=== PATIENT | male | born 1935 | race Hispanic/Latino ===

== ENCOUNTER 2017-10-31 14:31 | Outpatient (CLI) | payer MEDICARE | END 2017-10-31 14:32 | disposition home or self-care (01) | LOC: CP 14:31 | PROVIDERS: ATTEND Internal Medicine Critical Care Medicine | DX: J44.9 Chronic obstructive pulmonary disease, unspecified (principal) | CPT/HCPCS: 94060; 94727 ==

== ENCOUNTER 2018-05-10 16:36 | Observation (INO) | payer MEDICARE ==
[2018-05-10 17:04] LABS: #Eosinphils 0.1 thou/uL (0.0-0.7); #Lymphocytes 1.5 thou/uL (1.20-3.40); #Monocytes 0.6 thou/uL (0.11-0.59); %Basophils 0.4 % (0.0-1.0); %Eosinophils 1.4 % (0.0-10.0); %Lymphocytes 20.8 % (21.0-51.0); %Monocytes 8.7 % (0.0-10.0); %Neutrophils 68.7 % (42.0-75.0); Mean Corpuscular Hemoglobin 31.5 pg (27.0-31.0); Mean Corpuscular Volume 98.3 fL (78.0-98.0); Mean Platelet Volume 8.6 fL (7.4-10.4); Platelet Count 210 thou/uL (130-400); RBC Distribution Width 12.3 % (11.5-14.5); Red Blood Cell (RBC) Count 4.15 mill/uL (4.70-6.10); White Blood Cell (WBC) Count 7.2 thou/uL (4.8-10.8)
[2018-05-10 17:32] LABS: ALT (SGPT) 23 U/L (8-55); AST (SGOT) 26 U/L (5-34); Albumin 4.1 g/dL (3.4-4.8); Alkaline Phosphatase 51 U/L (40-150); Anion Gap 13 mmol/L (10-20); BUN (Urea Nitrogen) 21 mg/dL (8.4-25.7); Bilirubin, Total 0.5 mg/dL (0.2-1.2); CK (CPK) 655 U/L (30-200); Calc. Creatinine Clearance 0 mL/min (70-130); Calcium 9.7 mg/dL (7.8-10.44); Carbon Dioxide 27 mmol/L (23-31); Chloride 99 mmol/L (98-107); Estimated GFR-MDRD 59; Globulin 2.8 g/dL (2.4-3.5); Glucose 101 mg/dL (83-110); Lipase 26 U/L (8-78); Potassium 4.4 mmol/L (3.5-5.1); Protein, Total 6.9 g/dL (5.8-8.1); Sodium 135 mmol/L (136-145)
[2018-05-10 17:32] LABS: Troponin I 0.022 ng/mL (< 0.028)
[2018-05-10 17:38] LABS: CKMB 15.8 ng/mL (0-6.6)
[2018-05-10] MEDS ORDERED: hydrOXYzine 25 MG TAB ONE (18:48)
--- NOTE | 2018-05-10 19:58 | RAD ---
PORTABLE AP CHEST X-RAY 05/10/18 HISTORY: Dyspnea, shortness of breath over last few days. COMPARISON: 09/26/11. FINDINGS: Dual lead left subclavian cardiac pacemaking device remains in place and unchanged in position. The c ardiac silhouette is magnified by projection and is at the upper limits of normal in size but stable from prior exam. The pulmonary vasculature is within normal limits. Vascular calcifications are seen in the thoracic aorta. Lungs are clear. There is bilateral glenohumeral osteoarthropathy as well as a cromioclavicular joint osteoarthritis. IMPRESSION: No acute cardiopulmonary process. POS: [facility]
[2018-05-10 22:23] VITALS: BMI 31.1
[2018-05-11] LABS: Troponin I 0.025 ng/mL (< 0.028)
[2018-05-11] MEDS ORDERED: hydrOXYzine 25 MG TAB PO SCH (03:30)
[2018-05-11] MEDS ORDERED: Acetaminophen 325 MG TAB PO PRN (05:21)
[2018-05-11] MEDS ORDERED: Acetaminophen 650 MG Suppository PR PRN (05:21)
--- NOTE | 2018-05-11 05:54 | HP ---
PRIMARY CARE PROVIDER: Maria Luisa Reyna MD CHIEF COMPLAINT: Shortness of breath. HISTORY OF PRESENT ILLNESS: Mr. Porfirio Monk is a pleasant 82-year-old gentleman who was seen at [facility] on 05/11/2018. The patient mainly speaks Macanese. His son was the booking prizer for this encounter. Mr. Porfirio Monk was recently diagnosed with shingles in the V1 distribution. He also has conjunct ival erythema and has been seen by facilities maintenance technician as outpatient. He finishes acyclovir treatment. Over the last 3 days, he has had shortness of breath mainly while trying to sleep. There is no histo ry of any chest pain. There is no cough. No history of fevers or chills. Denies any abdominal pain . REVIEW OF SYSTEMS: All other systems were reviewed and found to be negative. PAST MEDICAL HISTORY: Congestive heart failure, diabetes mellitus, asthma, hypertension, and COPD. PAST SURGICAL HISTORY: Pacemaker placement. SOCIAL HISTORY: The patient is an ex-smoker. No history of alcohol use or recreational drug use. FAMILY HISTORY: No family history of premature coronary artery disease. CODE STATUS: I discussed his code status. He is FULL CODE. ALLERGIES: No known drug allergies. CURRENT MEDICATIONS: Acetaminophen 650 mg 3 times a day, Advair Diskus 100/50 mcg 1 puff b.i.d., alb uterol p.r.n., aspirin 81 mg daily, citalopram 10 mg daily, diltiazem 240 mg daily, Lasix 20 mg daily , DuoNeb p.r.n., lisinopril 40 mg daily, pravastatin 20 mg daily, and spironolactone 25 mg daily. PHYSICAL EXAMINATION: GENERAL: Mr. Porfirio Monk is sleepy, but arousable, not in acute distress. VITAL SIGNS: Blood pressure is 137/65, pulse 66, respiratory rate 20, and oxygen saturation 98% on 3 liters of oxygen by nasal cannula. He is afebrile. EYES: No scleral icterus. Left-sided conjunctival erythema. ENT: Moist mucosal membranes. No oropharyngeal erythema or exudates. NECK: Supple, nontender, trachea is midline. RESPIRATORY: Accessory muscles of breathing are not active. Chest wall movements are symmetric bila terally. LUNGS: Clear to auscultation, without wheeze, rhonchi, or crepitations. CARDIOVASCULAR: S1 and S2 are heard, regular. Peripheral pulses palpable. No carotid bruit, no per icardial rub. ABDOMEN: Soft, distended, nontender, bowel sounds are heard. NEUROLOGIC: No focal motor or sensory deficits, deep tendon reflexes are 2+. MUSCULOSKELETAL: Power is 5/5 in all 4 extremities. SKIN: Erythema over the V1 distribution on the left side. LYMPHATIC: No cervical lymphadenopathy. PSYCHIATRIC: Normal mood, normal affect. Patient is oriented to person and place. LABORATORY AND DIAGNOSTIC DATA: Mr. Porfirio Monk's labs and investigations were reviewed. I revie wed his electrocardiogram, which shows electronic AV paced rhythm. I also reviewed his chest x-ray, which does not show any pulmonary infiltrates. He has a normal white count, macrocytic anemia with h emoglobin 13.0, normal platelet count, decreased sodium of 135, normal potassium, normal creatinine, unremarkable liver profile, and indeterminate troponin I of 0.30, which increased from 0.022 and subs equently trended down into the normal range of 0.025. Creatinine is normal. Creatine kinase is elev ated at 655. ASSESSMENT AND PLAN: Mr. Porfirio Monk is a pleasant 82-year-old gentleman who was seen at [facility] on 05/11/2018. His problem list includes: 1. Shortness of breath: The etiology is unclear at this time. The patient does not appear to be in florid congestive heart failure. He will be admitted to the hospital for further management. We wi ll have his pacemaker interrogated to check his volume status and also to look for any arrhythmias. We will also consult Cardiology Service in case this is an anginal equivalent. 2. Hypertension: We will resume home medications once clarified, we will monitor vital signs and ti trate antihypertensives as needed. 3. Chronic obstructive pulmonary disease: Appears to be stable, no wheeze. 4. Congestive heart failure. This appears to be stable as well. He has a normal BNP. Many thanks for allowing me to participate in your patient's care. Please feel free to contact me wi th any questions or concerns. LEVEL OF RISK: High. LEVEL OF COMPLEXITY: High.
[2018-05-11] MEDS ORDERED: Lisinopril 20 MG TAB PO SCH (09:00)
[2018-05-11] MEDS ORDERED: Furosemide 20 MG TAB PO SCH (09:00)
[2018-05-11] MEDS ORDERED: Spironolactone 25 MG TAB PO SCH (09:00)
[2018-05-11] MEDS ORDERED: Enoxaparin Sodium 40 MG/0.4 ML SYRINGE SC SCH (09:00)
[2018-05-11] MEDS ORDERED: Iopamidol 370 76% 100 ML VIAL ONE (10:28)
[2018-05-11] MEDS ORDERED: Albuterol Sulfate 2.5 mg/3 ml Neb NEB PRN (10:35)
[2018-05-11] MEDS ORDERED: Mometasone/Formoterol 120 PUFF INHALER INH PRN (10:35)
[2018-05-11] MEDS ORDERED: hydrOXYzine 25 MG TAB PO PRN (10:38)
[2018-05-11] MEDS ORDERED: Lidocaine 1% (PF) 30 ML VIAL ONE (12:25)
[2018-05-11] MEDS ORDERED: Fentanyl 100 MCG/2 ML VIAL ONE (13:12)
[2018-05-11] MEDS ORDERED: Midazolam HCl 2 mg/2 ml Vial ONE (13:12)
[2018-05-11] MEDS ORDERED: Acetaminophen/Codeine 30-300mg Tablet PO PRN (13:46)
[2018-05-11] MEDS ORDERED: traMADol HCl 50 MG TAB PO PRN (13:46)
[2018-05-11] MEDS ORDERED: Sodium Chloride 0.9% 200 ML IV PRN (14:00)
[2018-05-11] MEDS ORDERED: Sodium Chloride 0.9% 1,000 ML IV SCH (14:00)
--- NOTE | 2018-05-11 14:26 | CON ---
DATE OF CONSULTATION: 05/21/2018 CARDIOLOGY CONSULTATION REASON FOR CONSULTATION: Shortness of breath. HISTORY OF PRESENT ILLNESS: Mr. Monroy is a pleasant 82-year-old white gentleman who comes to the [facility] for shortness of breath. He was at home. He has a history of COPD, but he has been noticing i ncreased shortness of breath with exertion lately, so he decided to come in. His BNP was normal. Hi s troponins were just slightly elevated to the indeterminate range and came back down, but an elevate d CK-MB. Cardiology is being consulted for all of this. He feels better now. PAST MEDICAL HISTORY: Includes, 1. Type 2 diabetes. 2. Bronchial asthma. 3. Hypertension. 4. Chronic obstructive pulmonary disease. PAST SURGICAL HISTORY: Pacemaker placement in the past. SOCIAL HISTORY: Former smoker. No tobacco or drugs. FAMILY HISTORY: Noncontributory. REVIEW OF SYSTEMS: A 12-point review of systems is done and is all negative except as stated in the history of present illness. OUTPATIENT MEDICATIONS: Include, 1. Acetaminophen. 2. Advair Diskus. 3. Albuterol. 4. Aspirin 81 a day. 5. Citalopram. 6. Diltiazem 240 mg a day. 7. Lasix 20 mg a day. 8. DuoNeb. 9. Lisinopril 40 mg a day. 10. Pravastatin 20 mg a day. 11. Spironolactone 25 a day. ALLERGIES: No known drug allergies. PHYSICAL EXAMINATION: VITAL SIGNS: Temperature 98.4, pulse 72, respiration rate 16, satting 98% on 2 liters, blood pressur e 142/68. GENERAL: Awake, alert, oriented x3, in no distress. HEENT: Normocephalic, atraumatic. NECK: Supple. LUNGS: Have reduced breath sounds bilaterally. CARDIOVASCULAR: S1, S2. No S3, S4. No murmurs. ABDOMEN: Soft. Positive bowel sounds. EXTREMITIES: No edema. SKIN: Warm and dry. LABORATORY WORK: Reviewed. CBC is unremarkable except for a hemoglobin of 13, hematocrit of 40, nor mal platelet count. CMP is unremarkable. CK-MB was 15. Troponin went from 0.02 to 0.03 and then 0. 02 and a CK was 655. BNP was 32. Albumin was 4.1. IMAGING: Chest x-ray, no acute cardiopulmonary process. ASSESSMENT AND PLAN: Shortness of breath: Certainly this could be ischemic in nature with his histo ry of tobacco use and diabetes. He is a high risk, but he had the negative stress test earlier this year, so the next best step would be to do a heart catheterization for further risk stratification. We will plan on doing this later today. We spoke about the risks and benefits of the procedures, whi ch included, but not limited to stroke, myocardial infarction, , bleeding, need for blood transf usion, limb loss, organ loss. He understands and verbalized understanding of this and agrees to proc eed. He is high risk for bleeding given his difficulty hearing and following instructions. He is aw are of this. He will try to follow instructions. Further recommendation per results of coronary angiogram.
[2018-05-11 16:05] VITALS: BP 140/65; TEMP 97.4
--- NOTE | 2018-05-12 02:39 | DIS ---
DATE OF ADMISSION: 05/10/2018 DATE OF DISCHARGE: 05/11/2018 PRIMARY CARE PHYSICIAN: Dr. Reyna. CONSULTANTS: Dr. Ramirez. PROCEDURES: Patient had a cardiac catheter today. No stents were placed. Patient had a chest x-ray on 05/10/2018 that showed no acute cardiopulmonary process. DISCHARGE DIAGNOSES: Include, 1. Shortness of breath, probably related to his reluctance to wear his oxygen device, because of his recent shingles outbreak on his face. 2. Hypertension. 3. Chronic obstructive pulmonary disease. 4. Diabetes. 5. Congestive heart failure. 6. Shingles, resolving. REVIEW OF SYSTEMS: Reports that he does have some mild shortness of breath here , but much better,. All other review of systems was reviewed and found to be negative. PHYSICAL EXAMINATION: VITAL SIGNS: Temperature 97.9, pulse 66, respirations are 20, blood pressure 137/65, pulse ox is 97% on 2 liters. GENERAL: Mr. Porfirio Monk is alert, answers questions appropriately. Eyes does have some left-sided conjunctival erythema. Pupils are reactive to light. ENT: Moist mucosal membranes. Head is normocephalic. NECK: Supple, nontender. Trachea is midline. RESPIRATORY: Chest wall movements are symmetrical bilaterally. Breath sounds with scattered diffuse rhonchi. No respiratory distress is noted. CARDIOVASCULAR: S1, S2, regular rhythm. Peripheral pulses are palpable. ABDOMEN: Soft, nontender, nondistended. Bowel sounds are heard. NEUROLOGIC: No focal or sensory deficits. MUSCULOSKELETAL: Power is 5/5 in all 4 extremities. SKIN: Erythema over the V1 distribution on the left side. LYMPHATIC: No cervical lymphadenopathy. PSYCH: Has normal affect. He is oriented to person and place. HOSPITAL COURSE: Mr. Porfirio Monk is a pleasant 82-year-old gentleman who was seen in the emergency room on 05/10/2018. He was recently diagnosed with shingles in the V1 distribution. He had just finished acyclovir treatment, was seen by real estate attorney as an outpatient for the conjunctival erythema. He reports over the last 3 days that he has had some shortness of breath mainly while trying to sleep. Today, patient thinks that he was primarily short of breath because he refused to wear his oxygen device, because of the shingle distribution on the left side of his face. He denied any cough. He denied any fevers or chills. Denied any abdominal pain or other symptoms. While he was in the hospital, we did serial troponins, the first one was negative. The second one bumped slightly at 0.030 and the third one went back down to negative. His CK-MB was 6.55. Patient did not appear to have any congestive heart failure exacerbation. He does have a history of COPD. He was admitted to the observation unit. The pacemaker interrogated and a Cardiology consult was placed. Dr. Ramirez visited with patient today and because of his slight bump in troponin and dyspnea decided best course of action was a cardiac catheterization, which was done earlier this afternoon and no stents were placed. Patient was observed for 3-1/2 hours post-procedure, bleeding was controlled at catheter insertion site and he denied any complaints. Decision was made to send patient home, which Dr. Ramirez agreed with as long as there was no complications and bleeding at the site of insertion for the cardiac catheterization. HOME MEDICATIONS: Home medications will be continued, which include albuterol inhalation solution 3 mL by nebulizer q.6 hours as needed for shortness of breath, Celexa 10 mg p.o. daily, Advair 12 grams 2 puffs b.i.d., furosemide 20 mg p.o. daily, lisinopril 40 mg p.o. daily, pravastatin 20 mg p.o. daily, Aldactone 25 mg p.o. daily, and Atarax, which was new today 25 mg p.o., is q.4 hours p.r.n. as he needs for itching while he is recovering from shingles. ALLERGIES: No known drug allergies. DISCHARGE INSTRUCTIONS: Patient will be stable. We will be discharged to home. REFERRAL: Patient should make an appointment to see Dr. Reyna within the next week. Follow up with Dr. Ramirez in the next 3-4 weeks. [facility]IT[facility]
[2018-05-12] MEDS ORDERED: Pravastatin Sodium 20 MG TAB PO SCH (09:00)
[2018-05-12] MEDS ORDERED: Citalopram 10 MG TAB PO SCH (09:00)
--- NOTE | 2018-05-18 15:45 | EKG ---
Test Reason : Blood Pressure : / mmHG Vent. Rate : 068 BPM Atrial Rate : 056 BPM P-R Int : 000 ms QRS Dur : 172 ms QT Int : 444 ms P-R-T Axes : 000 028 084 degrees QTc Int : 472 ms AV dual-paced rhythm Abnormal ECG Confirmed by ROSEANNE ISSA DO ([id number]), video tape editor LILLY MAGANA ([id number]) on 05/18/2018 3:45:01 PM Referred By: Confirmed By:ROSEANNE ISSA DO
== END 2018-05-11 19:25 | disposition home or self-care (01) ==
LOC: ERS 16:36 → 2SW 18:56
PROVIDERS: ADMIT Internal Medicine; ATTEND Internal Medicine
PROC: 4A023N7 Measurement of Cardiac Sampling and Pressure, Left Heart, Percutaneous Approach (ICD-10-PCS; principal; 2018-05-11)
PROC: B2111ZZ Fluoroscopy of Multiple Coronary Arteries using Low Osmolar Contrast (ICD-10-PCS; 2018-05-11)
DX: R06.02 Shortness of breath (principal); I77.1 Stricture of artery; E11.9 Type 2 diabetes mellitus without complications; I11.0 Hypertensive heart disease with heart failure; I50.9 Heart failure, unspecified; J44.9 Chronic obstructive pulmonary disease, unspecified; Z87.891 Personal history of nicotine dependence; Z79.82 Long term (current) use of aspirin; Z79.899 Other long term (current) drug therapy; Z95.0 Presence of cardiac pacemaker
CPT/HCPCS: 71045; 80053; 82550; 82553; 83690; 83880; 84484 ×2; 85025; 93005; 93458; 99285; C1769; G0378 ×2; 36415; 99152; J1644; J2001; J2250; J3010

== ENCOUNTER 2019-06-27 16:54 | Inpatient (IN) | payer MEDICARE ==
--- NOTE | 2019-06-27 17:28 | RAD ---
EXAM: CHEST ONE VIEW HISTORY: Cough COMPARISON: 05/10/2018 FINDINGS: Dual lead left subclavian cardiac pacemaking device remains in place. The cardiac silhouette is magni fied by projection but is enlarged. The pulmonary vasculature is within normal limits. There is suboptimal evaluation of the left lung base, but there is suggestion of mild linear patchy densities left lung base which could be related to atelectasis. Developing pneumonia left lung base is a possibility. Linear density is seen in the right midlung zone which may represent minimal atelectasis or scarring. Vascular calcifications are seen in the thoracic aorta. There is prominent bilateral glenohumeral osteoarthropathy with high riding humeral heads suggesting chronic rotator cuff tears. T here is bilateral acromioclavicular joint osteoarthritis. IMPRESSION: 1. Suboptimal evaluation of left lung base with suggestion of minimal linear and patchy densities pre sent. Findings may be related to atelectasis, but developing pneumonia is a possibility. Follow-up PA and lateral chest x-ray is recommended. 2. Cardiomegaly.
[2019-06-27 17:33] LABS: #Lymphocytes 0.9 thou/uL (1.20-3.40); #Monocytes 0.6 thou/uL (0.11-0.59); #Neutrophils 7.2 thou/uL (1.40-6.50); %Basophils 0.1 % (0.0-1.0); %Eosinophils 0.5 % (0.0-10.0); %Lymphocytes 10.2 % (21.0-51.0); %Monocytes 7.3 % (0.0-10.0); %Neutrophils 81.9 % (42.0-75.0); Hemoglobin 12.3 g/dL (14.0-18.0); Mean Corpuscular HGB CONC 31.9 g/dL (32.0-36.0); Mean Corpuscular Hemoglobin 31.3 pg (27.0-31.0); Mean Platelet Volume 9.7 fL (7.4-10.4); Platelet Count 163 thou/uL (130-400); Red Blood Cell (RBC) Count 3.92 mill/uL (4.70-6.10); White Blood Cell (WBC) Count 8.8 thou/uL (4.8-10.8)
[2019-06-27] MEDS ORDERED: Albuterol Sulfate 2.5 mg/3 ml Neb ONE (17:56)
[2019-06-27 17:58] LABS: ALT (SGPT) 46 U/L (8-55); AST (SGOT) 33 U/L (5-34); Albumin 3.9 g/dL (3.4-4.8); Alkaline Phosphatase 61 U/L (40-110); Anion Gap 12 mmol/L (10-20); BUN (Urea Nitrogen) 20 mg/dL (8.4-25.7); Bilirubin, Total 0.6 mg/dL (0.2-1.2); CK (CPK) 200 U/L (30-200); Calc. Creatinine Clearance 0 mL/min (70-130); Calcium 8.8 mg/dL (7.8-10.44); Carbon Dioxide 34 mmol/L (23-31); Chloride 97 mmol/L (98-107); Estimated GFR-MDRD 73; Globulin 2.4 g/dL (2.4-3.5); Glucose 117 mg/dL (83-110); Potassium 4.3 mmol/L (3.5-5.1); Protein, Total 6.3 g/dL (5.8-8.1); Sodium 139 mmol/L (136-145)
[2019-06-27 18:16] LABS: CKMB 5.9 ng/mL (0-6.6)
--- NOTE | 2019-06-27 18:45 | RAD ---
EXAM: Two views chest PROVIDED CLINICAL HISTORY: Shortness of breath. COMPARISON: 06/27/2019 at 1659 hours. FINDINGS: [Pacemaking device remains in place. Cardiac silhouette is enlarged. Pulmonary vasculature is at the upper limits of normal. There are bibasilar pleural parenchymal lung changes greater on the left with greater patchy parenchymal densities in the left lower lobe. Findings are suggestive of small bi lateral pleural effusions with pneumonia at the left lung base. There is no other interval change from prior study. IMPRESSION: 1. Left lower lobe pneumonia. Follow-up to complete resolution is recommended. 2. Small bilateral pleural effusions greater on the left. 3. Vascular calcifications and cardiomegaly..
[2019-06-27 22:10] VITALS: BMI 34.9
[2019-06-28] MEDS ORDERED: Acetaminophen 325 MG TAB PO PRN (12:07)
[2019-06-28] MEDS ORDERED: Guaifenesin DM 100-10/5 ML UDCUP PO PRN (12:07)
[2019-06-28] MEDS ORDERED: Bisacodyl 10 MG SUPP PR PRN (12:07)
[2019-06-28] MEDS ORDERED: Ondansetron PF 4 MG/2 ML Vial IVP PRN (12:07)
[2019-06-28] MEDS ORDERED: Senokot S 8.6-50 MG TAB PO PRN (12:07)
--- NOTE | 2019-06-28 13:36 | HP ---
REASON FOR ADMISSION: COPD exacerbation, CHF exacerbation. 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 He apparently started to have shortness of breath from last 4 days. He uses oxygen at home at 2 L. SOB got worse initially with exertion and later at rest. He has no fever at home. No expectoration of sputum. The patient also developed some lower extremity edema, which has gotten better after getting Lasix in the ER. No complaints of chest pain, palpitation, or PND. PAST MEDICAL AND SURGICAL HISTORY: History of CHF with diastolic dysfunction, diabetes mellitus type 2, COPD, hypertension, pacemaker, dyslipidemia, and depression. CURRENT MEDICATIONS: The patient is on: 1. Aspirin 81 mg p.o. daily. 2. Spironolactone 25 mg p.o. daily. 3. Cardizem CD 240 mg p.o. daily. 4. Celexa 10 mg p.o. daily. 5. Lisinopril 40 mg p.o. daily. 6. Pravachol 20 mg p.o. daily. 7. Advair Diskus inhaler. ALLERGIES: LASIX. PERSONAL HISTORY: Quit smoking 7 years back prior to which has smoked 1 pack a day for nearly 20 to 30 years. Drinks a mixed drink off and on and does not abuse drugs. Lives with his . FAMILY HISTORY: No history of premature heart disease in the family. CODE STATUS: Full. Power of business attorney is his , Ms. Adler. REVIEW OF SYSTEMS: CONSTITUTIONAL: Negative for weight loss or gain, ability to conduct usual activities. SKIN: Negative for rash, itching. EYES: Negative for double vision, pain. ENT/MOUTH: Negative for nose bleeding, neck stiffness, pain, tenderness. CARDIOVASCULAR: Negative for palpitations, dyspnea on exertion, orthopnea. RESPIRATORY: Negative for shortness of breath, wheezing, cough, hemoptysis, fever or night sweats. GASTROINTESTINAL: Negative for poor appetite, abdominal pain, heartburn, nausea , vomiting, constipation, or diarrhea. GENITOURINARY: Negative for urgency, frequency, dysuria, nocturia. MUSCULOSKELETAL: Negative for pain, swelling. NEUROLOGIC/PSYCHIATRIC: Negative for anxiety, depression. ALLERGY/IMMUNOLOGIC: Negative for skin rash, bleeding tendency. PHYSICAL EXAMINATION: GENERAL: The patient is an 84-year-old male, who is currently not in any acute distress. VITAL SIGNS: Blood pressure 132/58, pulse 66 per minute, respiratory rate 24 per minute, saturating 91% on 4 L oxygen, and temperature 98.8 degrees Fahrenheit. NECK: Supple. No elevated JVD. HEENT: Eyes; extraocular muscles intact. Pupils reacting to light. Oral cavity, mucous membranes are moist. No exudates or congestion. CARDIOVASCULAR: S1 and S2 heard. Regular rhythm. RESPIRATORY: Air entry 1+ bilateral. Scattered wheezes plus bilateral. ABDOMEN: Soft. Bowel sounds heard. No tenderness, rigidity, or guarding. EXTREMITIES: Mild peripheral edema. No calf tenderness. VASCULAR: Peripheral pulses 1+ bilateral. No ischemic ulcerations or gangrene. CENTRAL NERVOUS SYSTEM: No gross focal deficits noted. The patient is awake and alert. PSYCHIATRIC: No obvious hallucinations or delusions. LABORATORY DATA: Chest x-ray done shows questionable left lower lobe opacity likely atelectasis. White count of 8.8, hemoglobin and hematocrit of 12 and 38, platelet count 163, with 81% neutrophils. Serum bicarb 34, BUN 20, creatinine 0.9, serum glucose 117. Troponin I 0.03. CK-MB 5.9. BNP 565. Albumin 3.9. Blood cultures x2, no growth. EKG done shows paced rhythm at 65 beats per minute. QRS duration is 138 milliseconds, corrected QT is 434 milliseconds. There is T-inversion in V5 and V6. CLINICAL IMPRESSION AND PLAN: The patient will be admitted to medical floor for acute on chronic obstructive pulmonary disease exacerbation, acute on chronic respiratory failure with hypoxia, acute congestive heart failure exacerbation with diastolic dysfunction. The patient will be on Solu-Medrol 40 mg IV q.8 hourly, DuoNeb q.6 hourly, Brovana nebulization twice daily, and empiric Augmentin. We will continue aspirin, Celexa, Cardizem CD, lisinopril, spironolactone, and hydrochlorothiazide twice daily. Please note, the patient is allergic to Lasix. We will obtain echo with 2D Doppler for LV function. The patient has had prior cardiac catheterization done in May 2018, which was essentially normal. He has had a prior PFTs done in October 2017, which showed obstructive defect. We will continue to closely monitor him on medical floor. Job ID: [id number] [facility]
[2019-06-28] MEDS: methylPREDNISolone Sod Succ 40 MG VIAL IVP SCH ×2 (14:37→21:40)
--- NOTE | 2019-06-28 15:18 | CON ---
DATE OF CONSULTATION: 06/28/2019 This is 70 minutes time, of that time, greater than 50% was spent on direct patient care. HISTORY OF PRESENT ILLNESS: Mr. Porfirio Monk is an 84-year-old, who presents with a four-day history of increasing shortness of breath, particularly with exertion. His son tells me that the patient is on oxygen at home, but that has not helped him with his breathing. He has had no fever, chills, cough, or wheezing. PAST MEDICAL HISTORY: 1. COPD. 2. Chronic diastolic heart dysfunction. 3. Diabetes mellitus, type 2. 4. Hyperlipidemia. PAST SURGICAL HISTORY: Pacemaker placement. MEDICATIONS: Prior to admission; 1. Aspirin. 2. Spironolactone. 3. Cardizem. 4. Celexa. 5. Lisinopril. 6. Pravachol. 7. Advair Diskus inhaler. ALLERGIES: LASIX. SOCIAL HISTORY: He quit smoking 7 years ago after smoking one pack a day for 30 years. Does not consume alcohol very often. Lives at home with his . FAMILY HISTORY: Unremarkable. REVIEW OF SYSTEMS: A 12-point review of systems otherwise negative. PHYSICAL EXAMINATION: VITAL SIGNS: Temperature 97.6, pulse 65, respirations 20, O2 saturation 91% on 2 L, and blood pressure 167/72. GENERAL: He is lying flat and in no distress. HEENT: Unremarkable. NECK: No adenopathy or JVD. LUNGS: He has few inspiratory crackles in both bases. No wheezing. No accessory muscle use. CARDIAC: S1 and S2, regular. ABDOMEN: Soft. EXTREMITIES: No edema. LABORATORY DATA: BNP is 565. Sodium 139, potassium 4.3, BUN 20, creatinine 0.9, glucose 117. White blood cell count 8.8, hematocrit 38.5, and platelet count 163. His chest x-ray shows pulmonary vascular congestion and cardiomegaly along with small bilateral pleural effusions. ASSESSMENT: 1. Congestive heart failure - acute diastolic. 2. I doubt the patient has pneumonia. 3. Severe chronic obstructive pulmonary disease. PLAN: I would focus on diuresing this patient with IV Lasix. His labs will be recheck tomorrow. I will go ahead and hold his hydrochlorothiazide for the time being. Job ID: [id number]
[2019-06-28] MEDS: Arformoterol 15 MCG/2 ML NEB NEB SCH (19:59)
[2019-06-28] MEDS: Amoxicillin/Potassium Clav 875 MG TAB PO SCH (20:03)
[2019-06-28] MEDS: Famotidine 20 MG TAB PO SCH (20:03)
[2019-06-28] MEDS: Simvastatin 5 MG TAB PO SCH (20:03)
[2019-06-28] MEDS: Mometasone/Formoterol 120 PUFF INHALER INH SCH (20:15)
[2019-06-28] MEDS: acetaZOLAMIDE Sodium 250 MG in Sodium Chloride 0.9% 50 ML IVPB SCH (20:57)
[2019-06-28] MEDS ORDERED: Hydrochlorothiazide 25 MG TAB PO SCH (21:00)
[2019-06-29] MEDS ORDERED: hydrALAZINE 20 MG/ML VIAL SLOW IVP PRN (00:23)
[2019-06-29 05:38] LABS: #Lymphocytes 0.4 thou/uL (1.20-3.40); #Monocytes 0.1 thou/uL (0.11-0.59); #Neutrophils 6.9 thou/uL (1.40-6.50); %Eosinophils 0.1 % (0.0-10.0); %Lymphocytes 5.6 % (21.0-51.0); %Monocytes 1.4 % (0.0-10.0); %Neutrophils 92.9 % (42.0-75.0); Hemoglobin 12.5 g/dL (14.0-18.0); Mean Corpuscular HGB CONC 31.6 g/dL (32.0-36.0); Mean Corpuscular Hemoglobin 31.4 pg (27.0-31.0); Mean Corpuscular Volume 99.3 fL (78.0-98.0); Mean Platelet Volume 9.6 fL (7.4-10.4); Platelet Count 166 thou/uL (130-400); RBC Distribution Width 12.2 % (11.5-14.5); Red Blood Cell (RBC) Count 3.97 mill/uL (4.70-6.10); White Blood Cell (WBC) Count 7.4 thou/uL (4.8-10.8)
[2019-06-29] MEDS: methylPREDNISolone Sod Succ 40 MG VIAL IVP SCH ×3 (05:48→21:07)
[2019-06-29 05:59] LABS: Anion Gap 13 mmol/L (10-20); BUN (Urea Nitrogen) 19 mg/dL (8.4-25.7); Calc. Creatinine Clearance 67 mL/min (70-130); Carbon Dioxide 30 mmol/L (23-31); Chloride 100 mmol/L (98-107); Estimated GFR-MDRD 73; Glucose 157 mg/dL (83-110); Potassium 4.3 mmol/L (3.5-5.1); Sodium 139 mmol/L (136-145)
[2019-06-29] MEDS: Arformoterol 15 MCG/2 ML NEB NEB SCH ×2 (08:03→20:08)
[2019-06-29] MEDS: Mometasone/Formoterol 120 PUFF INHALER INH SCH ×2 (08:04→20:08)
[2019-06-29] MEDS: Lisinopril 20 MG TAB PO SCH (08:52)
[2019-06-29] MEDS: Citalopram 10 MG TAB PO SCH (08:52)
[2019-06-29] MEDS: Enoxaparin Sodium 40 MG/0.4 ML SYRINGE SC SCH (08:52)
[2019-06-29] MEDS: acetaZOLAMIDE Sodium 250 MG in Sodium Chloride 0.9% 50 ML IVPB SCH ×2 (08:52→21:07)
[2019-06-29] MEDS: Amoxicillin/Potassium Clav 875 MG TAB PO SCH ×2 (08:53→21:07)
[2019-06-29] MEDS: Famotidine 20 MG TAB PO SCH ×2 (08:53→21:07)
[2019-06-29] MEDS: Aspirin Chewable 81 MG TAB PO SCH (08:53)
[2019-06-29] MEDS: Spironolactone 25 MG TAB PO SCH (08:53)
[2019-06-29] MEDS ORDERED: Diltiazem HCl SR 60 mg Capsule PO SCH (09:00)
--- NOTE | 2019-06-29 11:37 | PRG ---
DATE OF SERVICE: 06/29/2019 SUBJECTIVE: The patient seem to be doing reasonably well. He is coughing. OBJECTIVE: VITAL SIGNS: On exam, temperature 98.1, pulse 95, respirations 18, O2 saturation 91% on 2 L, and blood pressure 165/69. HEENT: Clear. NECK: No adenopathy or JVD. LUNGS: Coarse breath sounds bilaterally. CARDIAC: S1 and S2. Regular. ABDOMEN: Soft. EXTREMITIES: No edema. LABORATORY DATA: White blood cell count 7.9, hematocrit 39.4, and platelet count 166. Sodium 139, potassium 4.3, chloride 100, CO2 of 30, BUN 19, creatinine 0.9, and glucose 157. ASSESSMENT: 1. Acute diastolic congestive heart failure. 2. Acute hypoxic respiratory failure. 3. History of severe chronic obstructive pulmonary disease. RECOMMENDATIONS: He is currently being diuresed with acetazolamide because he is allergic to Lasix that is probably not a good long-term solution. He is also on spironolactone. Job ID: [id number]
--- NOTE | 2019-06-29 14:15 | PRG ---
DATE OF SERVICE: 06/29/2019 SUBJECTIVE: The patient reports he is actually breathing quite well. Feels like he is pretty close to his baseline, not having significant cough, reviewed with him the allergy to furosemide. Apparently, he had been taking it previously and had no problems, suddenly developed some swelling of his face and felt like his tongue was swelling. He believes it was related to that medication, although there was apparently no way to confirm that. OBJECTIVE: VITAL SIGNS: Temperature is 98.1, pulse 65, respirations 20, O2 saturation 92% on 2 L nasal cannula, BP 165/69. GENERAL APPEARANCE: Age-appropriate male, in no distress. Awake, alert, pleasant, cooperative. HEART: Regular rate and rhythm without murmurs, gallops, rubs. LUNGS: Diminished but clear. No wheeze or rales. ABDOMEN: Soft, nontender, and nondistended. EXTREMITIES: No cyanosis, clubbing, or edema. LABORATORY DATA: White count 7.4, hemoglobin 12.5, platelets 166. Chemistries normal. Glucose 180. Echocardiogram from yesterday revealed EF of 50%-55% EF, [id number] TR, mildly elevated pulmonary artery pressure, left atrium was severely dilated. IMPRESSION AND PLAN: 1. Chronic obstructive pulmonary disease exacerbation. The patient with chronic COPD and chronic hypoxic respiratory failure requiring home oxygen. The patient is improving with treatment including steroids, nebulizers, and supplemental oxygen. He is close to his baseline and hope to potentially discharge as early as tomorrow. 2. Congestive heart failure. This is primarily based on an elevated BNP. He does not have significant history of cardiomyopathy and has had normal EF now in the echo and last year on heart catheterization, which also revealed no coronary disease. It is challenging to diurese with Lasix allergy. He is getting acetazolamide and Aldactone presently and seems to be stable from that perspective, but I doubt he will need to go home on any additional diuretics. 3. Lasix allergy. It is concerning that the patient had swelling of his lips and tongue and yet he is still on an EARNSET inhibitor. 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 Suspect the only way at this point to confirm that is, if it were to happen again. 4. Hypertension. For now, continue with the lisinopril and diltiazem. 5. Pneumonia. Chest x-ray is concerning for infiltrate. He is on p.o. Augmentin and appears to be doing well with that. Job ID: [id number]
[2019-06-29] MEDS: Simvastatin 5 MG TAB PO SCH (21:08)
[2019-06-30] MEDS: methylPREDNISolone Sod Succ 40 MG VIAL IVP SCH ×2 (05:11→14:05)
[2019-06-30] MEDS: Arformoterol 15 MCG/2 ML NEB NEB SCH (07:58)
[2019-06-30] MEDS: Mometasone/Formoterol 120 PUFF INHALER INH SCH (07:59)
[2019-06-30] MEDS: acetaZOLAMIDE Sodium 250 MG in Sodium Chloride 0.9% 50 ML IVPB SCH (08:37)
[2019-06-30] MEDS: Aspirin Chewable 81 MG TAB PO SCH (08:37)
[2019-06-30] MEDS: Citalopram 10 MG TAB PO SCH (08:37)
[2019-06-30] MEDS: Amoxicillin/Potassium Clav 875 MG TAB PO SCH (08:37)
[2019-06-30] MEDS: Enoxaparin Sodium 40 MG/0.4 ML SYRINGE SC SCH (08:38)
[2019-06-30] MEDS: Lisinopril 20 MG TAB PO SCH (08:38)
[2019-06-30] MEDS: Famotidine 20 MG TAB PO SCH (08:38)
[2019-06-30] MEDS: Spironolactone 25 MG TAB PO SCH (08:38)
--- NOTE | 2019-06-30 09:53 | PRG ---
DATE OF SERVICE: 06/30/2019 SUBJECTIVE: The patient was feeling very good. However, this morning, he got up, went to the bathroom and said he was not feeling quite as well. Subsequent to that, he feels like his breathing is generally better. OBJECTIVE: VITAL SIGNS: Temperature 97.8, pulse 65, respirations 18 to 20, O2 saturation 95% to 96% on 2 L, and BP was documented at 138/39, I suspect that was an error, previous was 149/79. GENERAL APPEARANCE: Age-appropriate male. He is in no distress. He is awake and alert. LUNGS: Actually clear, but diminished with no wheezing or rales noted. LABORATORY DATA: Glucose is 182. IMPRESSION AND PLAN: 1. Acute on chronic hypoxic respiratory failure secondary to chronic obstructive pulmonary disease, pneumonia. 2. Pneumonia with left lower lobe infiltrate noted on chest x-ray. Continue with p.o. Augmentin. 3. Chronic obstructive pulmonary disease with exacerbation, likely related to the pneumonia. Continuing with the DuoNebs, Brovana, Solu-Medrol, and Dulera. 4. Hypertension, well controlled. Continue with diltiazem and Zestril. 5. Concern for congestive heart failure based on elevated BNP at 565. However, echocardiogram showing essentially normal ventricular function. Currently on Aldactone at home on a regular basis. He is receiving some acetazolamide here in addition to that because of a Lasix allergy, which is unclear. Suspect this is more related to the pneumonia and chronic obstructive pulmonary disease and we will not need to continue the acetazolamide going forward. DISPOSITION: I believe the patient is likely close to going home. We will see how he does today. If he is feeling up to it and Pulmonology agrees, could potentially go home later today. Job ID: [id number]
--- NOTE | 2019-06-30 13:11 | PRG ---
DATE OF SERVICE: 06/30/2019 SUBJECTIVE: The patient is doing better. He wants to go home. OBJECTIVE: VITAL SIGNS: Temperature 97.9, pulse 65, blood pressure 130/59, O2 saturation 95% on 2 L. HEENT: Unremarkable. NECK: No adenopathy or JVD. LUNGS: He has some crackles in the right base. Left side is clear. ABDOMEN: Soft and nontender. CARDIAC: S1 and S2 regular. DIAGNOSTIC DATA: Echocardiogram showed mitral regurgitation. ASSESSMENT: 1. Decompensated diastolic heart failure. 2. History of severe chronic obstructive pulmonary disease. 3. Acute hypoxic respiratory failure. PLAN: The patient has oxygen at home. He will continue diuretics at home. I will stop the acetazolamide and he will continue the spironolactone at home. Job ID: [id number]
[2019-06-30 14:41] VITALS: BP 155/64; TEMP 98
--- NOTE | 2019-07-01 10:39 | DIS ---
DATE OF ADMISSION: 06/27/2019 DATE OF DISCHARGE: 06/30/2019 DISCHARGE DIAGNOSES: 1. Acute on chronic hypoxic respiratory failure. 2. Pneumonia of left lower lobe based on infiltrate on x-ray. 3. Congestive heart failure, likely diastolic in nature. 4. Chronic obstructive pulmonary disease with exacerbation. 5. History of hypertension. HISTORY OF PRESENT ILLNESS: This patient is an 84-year-old male with history of longstanding COPD with chronic hypoxic respiratory failure requiring home oxygen, who presented to the hospital with worsening shortness of breath. He had an elevated BNP concerning for decompensation of heart failure. He had a chest x-ray showing left lower lobe infiltrate consistent with pneumonia and he had small bilateral effusions. HOSPITAL COURSE: The patient was admitted to the hospital, started on antibiotics. He also had a history of allergy to Lasix, which was somewhat unclear. However, the patient reported in the past he had some swelling of his lips and tongue, although he had previously taken Lasix without any difficulty. He personally attributed to the Lasix, although that is unconfirmed. He is on Aldactone as a diuretic at home, so he was started on acetazolamide in the hospital. He did have an echocardiogram which revealed an EF of 50% to 55%. He had mild MR, [id number]-[id number] TR, and mildly elevated pulmonary artery pressure, but otherwise normal functioning cardiac status. He was also treated aggressively for COPD with steroids, oxygen, and nebulizer treatments. He was seen in consultation by Pulmonology. Ultimately, the patient's symptoms did improve with these treatments and he has felt like he was breathing back to his baseline with his 2 L of nasal cannula oxygen and with that was felt to be stable for discharge. PHYSICAL EXAMINATION: On the day of discharge, please see the progress note dated same date as discharge. DISPOSITION: The patient is discharged to home. ACTIVITY: As tolerated. DIET: He will stay on a heart healthy diet. DISCHARGE MEDICATIONS: He will be on; 1. Augmentin 875 one p.o. b.i.d. 2. Prednisone 20 mg p.o. daily for 4 days. He will continue his usual home medications including; 1. Aldactone 25 mg daily. 2. Citalopram 10 mg daily. 3. Pravastatin 20 mg daily. 4. Lisinopril 20 mg daily. 5. Advair HFA two puffs b.i.d. 6. Diltiazem 240 mg daily. 7. DuoNeb p.r.n. FOLLOWUP: He will follow up with his PCP, Dr. Maria Luisa Reyna and will follow up with Dr. Duncan Bullock as an outpatient. He is also encouraged to follow up with Dr. Ramirez, his adapted physical education specialist on July 24. He can return to the hospital at anytime should he have any do so. TIME SPENT: Total time in discharge activities was 38 minutes. Job ID: [id number]
== END 2019-06-30 15:03 | disposition home or self-care (01) | DRG 291 ==
LOC: ERS 16:54 → OBSVTOIN 21:54 → 2SW 21:54 → T4-B 06-29 10:19
PROVIDERS: ADMIT Emergency Medicine; ATTEND Emergency Medicine
DX: I11.0 Hypertensive heart disease with heart failure (principal); I50.31 Acute diastolic (congestive) heart failure; J96.21 Acute and chronic respiratory failure with hypoxia; J18.9 Pneumonia, unspecified organism; J44.1 Chronic obstructive pulmonary disease with (acute) exacerbation; E11.9 Type 2 diabetes mellitus without complications; E78.5 Hyperlipidemia, unspecified; F32.9 Major depressive disorder, single episode, unspecified; Z79.82 Long term (current) use of aspirin; Z79.899 Other long term (current) drug therapy; Z88.8 Allergy status to other drugs, medicaments and biological substances; Z87.891 Personal history of nicotine dependence; Z99.81 Dependence on supplemental oxygen
CPT/HCPCS: 36415; 36416; 71045; 71046; 80048; 80053; 82550; 82553; 83880; 84443; 84484; 85025; 87040; 87070; 87205; 93005; 93306; 94640; 94664; 94760; 96365; J1120; J1650; J1956; J2920; J7611; J7620

== ENCOUNTER 2021-09-04 19:36 | Emergency (ER) | payer MEDICARE ==
[2021-09-04 20:21] LABS: #Eosinphils 0.1 thou/uL (0.0-0.7); #Lymphocytes 0.9 thou/uL (1.20-3.40); #Monocytes 0.9 thou/uL (0.11-0.59); #Neutrophils 5.4 thou/uL (1.40-6.50); %Basophils 0.4 % (0.0-1.0); %Eosinophils 0.7 % (0.0-10.0); %Lymphocytes 12.7 % (21.0-51.0); %Monocytes 12.5 % (0.0-10.0); %Neutrophils 73.7 % (42.0-75.0); Hemoglobin 8.5 g/dL (14.0-18.0); Mean Corpuscular HGB CONC 30.9 g/dL (32.0-36.0); Mean Corpuscular Hemoglobin 29.7 pg (27.0-31.0); Mean Corpuscular Volume 95.9 fL (78.0-98.0); Mean Platelet Volume 7.6 fL (7.4-10.4); Platelet Count 309 thou/uL (130-400); RBC Distribution Width 14.3 % (11.5-14.5); Red Blood Cell (RBC) Count 2.86 mill/uL (4.70-6.10); White Blood Cell (WBC) Count 7.3 thou/uL (4.8-10.8)
[2021-09-04 20:52] LABS: AST (SGOT) 14 U/L (5-34); Anion Gap 11 mmol/L (10-20); Bilirubin, Total 0.3 mg/dL (0.2-1.2); Calcium 8.5 mg/dL (7.8-10.44); Carbon Dioxide 29 mmol/L (23-31); Chloride 102 mmol/L (98-107); Potassium 4.9 mmol/L (3.5-5.1); Sodium 137 mmol/L (136-145)
[2021-09-04 20:53] LABS: Albumin 3.1 g/dL (3.4-4.8)
[2021-09-04 20:56] LABS: Globulin 2.5 g/dL (2.4-3.5); Glucose 123 mg/dL (83-110); Protein, Total 5.6 g/dL (5.8-8.1)
[2021-09-04 20:58] LABS: Alkaline Phosphatase 62 U/L (40-110)
[2021-09-04 20:59] LABS: Calc. Creatinine Clearance 0 mL/min (70-130)
[2021-09-04 21:00] LABS: BUN (Urea Nitrogen) 18 mg/dL (8.4-25.7)
[2021-09-04 21:02] LABS: ALT (SGPT) 10 U/L (8-55)
== END 2021-09-04 23:00 | disposition home or self-care (01) ==
LOC: ERS 19:36
DX: I11.0 Hypertensive heart disease with heart failure (principal); I50.9 Heart failure, unspecified; D64.9 Anemia, unspecified; J44.9 Chronic obstructive pulmonary disease, unspecified; Z87.891 Personal history of nicotine dependence
CPT/HCPCS: 71045; 80053; 82274; 83880; 84484; 85025; 93005

== ENCOUNTER 2021-11-02 11:00 | Outpatient (CLI) | payer MEDICARE | END 2021-11-02 11:01 | disposition home or self-care (01) | LOC: NM 11:00 | PROVIDERS: ATTEND Urology | DX: C61 Malignant neoplasm of prostate (principal) | CPT/HCPCS: 78306; A9503 ==

== ENCOUNTER 2022-07-25 11:13 | Emergency (ER) | payer MEDICARE | END 2022-07-25 15:01 | disposition left against medical advice (07) | LOC: ERS 11:13 | DX: Z53.21 Procedure and treatment not carried out due to patient leaving prior to being seen by health care provider (principal) ==

== ENCOUNTER 2022-07-25 16:08 | Outpatient (CLI) | payer MEDICARE | END 2022-07-25 16:09 | disposition home or self-care (01) | LOC: BICRAD 16:08 | PROVIDERS: ATTEND Nurse Practitioner Family | DX: M47.26 Other spondylosis with radiculopathy, lumbar region (principal); M16.0 Bilateral primary osteoarthritis of hip; M47.818 Spondylosis without myelopathy or radiculopathy, sacral and sacrococcygeal region | CPT/HCPCS: 72100; 72170; 81001 ==

== ENCOUNTER 2023-07-14 15:37 | Outpatient (CLI) | payer MEDICARE | END 2023-07-14 15:38 | disposition home or self-care (01) | LOC: BICRAD 15:37 | PROVIDERS: ATTEND Nurse Practitioner Family | DX: Z99.81 Dependence on supplemental oxygen (principal) | CPT/HCPCS: 71046 ==

== ENCOUNTER 2023-09-11 07:37 | Outpatient (CLI) | payer MEDICARE | END 2023-09-11 07:38 | disposition home or self-care (01) | LOC: CT 07:37 | PROVIDERS: ATTEND Internal Medicine Cardiovascular Disease | DX: I65.23 Occlusion and stenosis of bilateral carotid arteries (principal) | CPT/HCPCS: 70498; 82565 ==